=== PATIENT | male | born 1995 | race Caucasian/White ===

== ENCOUNTER 2019-12-17 17:47 | Emergency (ER) | payer MEDICAID ==
[~2019-12-17] VITALS: Ht 180.3 cm; Wt 68.0 kg
[~2019-12-17 17:47] MED LIST: ABIL10 PO; IBUP-2029 PO; LITHTAB PO; QUET200T PO
[2019-12-17] MEDS ORDERED: FAMOTIDINE 20MG/2ML VIAL IV STA (18:59)
[2019-12-17] MEDS ORDERED: SODIUM CHLORIDE 0.9% 1,000 ML IV ONE (18:59)
[2019-12-17] MEDS ORDERED: MAGNESIUM/ALUMINUM HYDROXIDE/SIMETHICONE 30ML UDC PO STA (18:59)
[2019-12-17] MEDS ORDERED: MORPHINE SULFATE 4 MG/ML CPJ (NOT FOR IM USE) IV ONE (19:00)
[2019-12-17] MEDS ORDERED: ONDANSETRON HCL 4MG/2ML INJ IV ONE (19:00)
[2019-12-17 19:18] LABS: BASOPHILS % 0.8 % (0.0-2.0); EOSINOPHILS % 2.5 % (0.0-5.0); HEMATOCRIT. 44.4 % (42.0-52.0); HEMOGLOBIN. 14.9 g/dL (14.0-18.0); LYMPHOCYTES % 31.2 % (20.0-50.0); MEAN CORPUSCULAR HEMOGLOBIN 32.7 pg (28.0-32.0); MEAN CORPUSCULAR VOLUME 97.6 fL (80.0-94.0); MEAN PLATELET VOLUME 7.3 fl (7.4-10.4); MONOCYTES % 6.5 % (2.0-8.0); PLATELET 313 x1000/uL (130-400); RED BLOOD CELL COUNT 4.55 mill/uL (4.7-6.1); RED CELL DISTRIBUTION WIDTH 13.4 % (11.6-14.6)
[2019-12-17 19:23] LABS: CHLORIDE 105 mEq/L (98-107)
[2019-12-17 19:25] LABS: PROTHROMBIN TIME 10.3 sec (9.6-11.0)
[2019-12-17] MEDS ORDERED: BUPIVACAINE HCL/PF 0.25% (2.5MG/ML) 10ML INFIL ONE (19:45)
[2019-12-17] MEDS ORDERED: FENTANYL CITRATE/PF 50MCG/ML 2ML VIAL IV ONE (20:15)
[2019-12-17] MEDS ORDERED: ACETAMINOPHEN 500MG TABLET PO ONE (20:45)
[2019-12-17] MEDS ORDERED: IBUPROFEN 600MG TABLET PO ONE (20:45)
[2019-12-17 22:04] VITALS: BP 118/70
== END 2019-12-17 22:05 | disposition home or self-care (01) ==
LOC: ER 17:47
DX: S43.015A Anterior dislocation of left humerus, initial encounter (principal); R03.0 Elevated blood-pressure reading, without diagnosis of hypertension; Y93.89 Activity, other specified; W01.10XA Fall on same level from slipping, tripping and stumbling with subsequent striking against unspecified object, initial encounter; Y92.89 Other specified places as the place of occurrence of the external cause; Z86.59 Personal history of other mental and behavioral disorders
CPT/HCPCS: 23650; 36415; 73030; 80053; 83690; 85025; 85610; 93005; 96374; 96375; 99152; 99285; J2270; J2405; J3010; J3490; J7030